=== PATIENT | female | born 1990 | race Caucasian/White ===

== ENCOUNTER 2016-04-27 23:55 | Outpatient (CLI) | payer MEDICAID ==
[~2016-04-27] VITALS: Ht 160 cm; Wt 75.6 kg
[2016-04-28 00:21] LABS: BILIRUBIN,URINE NEGATIVE (NEGATIVE); KETONES,URINE NEGATIVE (NEGATIVE); LEUKOCYTE ESTERASE ,URINE 1+ (NEGATIVE); NITRITE,URINE NEGATIVE (NEGATIVE); PH,URINE 6.5 (5-9); PROTEIN,URINE NEGATIVE (NEGATIVE); UROBILINOGEN,URINE 1 MG/DL (NORMAL)
[2016-04-28 00:22] VITALS: BP 113/62
[2016-04-28 00:36] LABS: WBC,URINE RARE /HPF
--- NOTE | 2016-04-28 08:55 | Physician Query-Final Dx ---
JACOBO DAVE 04/28/16 0855: Clinic Account Progress/Dx Physician Query: Please give diagnosis Date of Service Apr 27, 2016 at 23:55 FRANNY JONES DO 05/09/16 0801: Clinic Account Progress/Dx DIAGNOSIS: Diagnosis 1. 39 week gestation 2. contractions, not in active labor JACOBO DAVE Apr 28, 2016 08:55 FRANNY JONES DO May 09, 2016 08:01
== END 2016-04-28 01:49 | disposition home or self-care (01) ==
LOC: WSo 23:55 → LDRP 23:56 → WSo 04-28 01:49
PROVIDERS: ATTEND Family Medicine
DX: O47.1 False labor at or after 37 completed weeks of gestation (principal); Z3A.39 39 weeks gestation of pregnancy
CPT/HCPCS: 80306; 81000; 99213